=== PATIENT | female | born 1980 | race Caucasian/White ===

== ENCOUNTER 2020-01-14 10:08 | Outpatient (CLI) | payer BC, SELFPAY ==
--- NOTE | ~2020-01-14 | US_ITS ---
EXAMINATION: US retroperitoneal comp DATE: 01/14/2020 10:30 INDICATION: Chronic kidney disease TECHNIQUE: Multiple ultrasound grayscale images of the kidneys were obtained. COMPARISON: 03/23/1959 FINDINGS: The right kidney measures 9.5 x 3.1 x 5.5 cm. The left kidney measures 8.1 x 3.2 x 4.0 cm. The kidney s demonstrate normal echogenicity. There is no hydronephrosis in either kidney. No stones identified . The bladder is normal. IMPRESSION: 1. Mild bilateral renal atrophy. No hydronephrosis. Reviewed, dictated and finalized at location [facility]. [facility]
== END 2020-01-14 10:09 | disposition home or self-care (01) ==
LOC: ANHIMG 10:10
PROVIDERS: PCP Internal Medicine; Visit Provider Internal Medicine
DX: N18.9 Chronic kidney disease, unspecified (principal)
CPT/HCPCS: 76770

== ENCOUNTER 2020-01-15 16:25 | Emergency (ER) | payer SELFPAY ==
[2020-01-15 16:36] VITALS: BP 153/97; PULSE 68; RESP 18; TEMP 37.2; O2SAT 100
--- NOTE | 2020-01-15 16:57 | ED.ANIMALBIT ---
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 Patient has small puncture wounds to her left hand no obvious signs of infection suggest erythema. There is some edema to the site with tenderness no drainage noticed and no neurovascular deficiency noted. Patient able to move phalanges no signs of tenosynovitis . Patient did receive a tetanus shot. According to iron worker foreman animal did have a rabies shot. The patient denies SOB, CP, palpitation, extremity numbness, lightheadedness, dizziness, constipation, diarrhea, chills, or fever. MD complaint: animal bite Related Data Home Medications Medication Instructions Recorded Confirmed levothyroxine 50 mcg PO DAILY 01/15/20 01/15/20 trazodone 50 mg PO HS 01/15/20 01/15/20 valacyclovir [Valtrex] 2,000 mg PO Q12H PRN 01/15/20 01/15/20 Allergies Allergy/AdvReac Type Severity Reaction Status Date / Time Sulfa (Sulfonamide AdvReac Intermediate Nausea and Verified 01/15/20 16:43 Antibiotics) Vomiting Review of Systems Review of Systems: All systems reviewed & are unremarkable except as noted in HPI and below (10 point system review) [facility] Family History Family History Mother Family history of kidney disease Social History Social History Smoking status: Never smoker Alcohol intake: never Gender identity (if verbalized by the patient): Female Exam Narrative: Exam Narrative: GENERAL: This is a well-nourished, well-developed patient, in no apparent distress. HEAD: normocephalic, atraumatic. EYES: PERRL. Sclera clear/white. Vision is grossly intact. EARS: External ears normal, auditory canals clear and without drainage, TMs normal without perforation. Hearing grossly intact. NOSE: External nose normal with no obvious nasal discharge, nares without redness, no rhinorrhea. THROAT: Mucous membranes moist, posterior pharynx clear. NECK: Neck supple, non-tender without lymphadenopathy, masses or thyromegaly. CARDIOVASCULAR: Regular rate and rhythm without murmurs, gallops, or rubs. RESPIRATORY: Clear to auscultation. Breath sounds equal bilaterally. No wheezes, rales, or rhonchi. GASTROINTESTINAL: Abdomen soft, non-tender, nondistended. Bowel sounds are active. No hepato-splenomegaly, or palpable masses. No guarding. SKIN: warm, intact with no or rash, good texture and turgor. small puncture arora on the middle finger to the intermedial phalange and a small puncture wound to the back of her hand NEURO: awake, alert, and oriented to person, place and time. There were no obvious focal neurologic abnormalities. Steady gait EXTREMITIES: Normal range of motion. No edema. No calf tenderness. Negative Homans sign bilaterally. BACK: Nontender without deformity or crepitance. No flank tenderness. Skin: Wounds: wounds noted Course Course Emergency Course: Site cleaned Vital Signs Vital signs: Vital Signs Temperature 98.9 F 01/15/20 16:36 Pulse Rate 68 01/15/20 16:36 Respiratory Rate 18 01/15/20 16:36 Blood Pressure 153/97 H 01/15/20 16:36 Pulse Oximetry 100 01/15/20 16:36 Temperature 98.9 F 01/15/20 16:36 Pulse Rate 68 01/15/20 16:36 Respiratory Rate 18 01/15/20 16:36 Blood Pressure 153/97 H 01/15/20 16:36 Pulse Oximetry 100 01/15/20 16:36 Discharge Plan Discharge Clinical Impression: Bite by animal Patient Disposition: Home, Self-Care Condition: Stable Instructions: Antibiotic Form, Animal Bite (ED) Additional Instructions: Follow up with provider in 1-2 week Take medication an ordered How are animal bites treated? ? If you get treated for a bite, your doctor or nurse will first clean and disinfect y
[2020-01-15] MEDS: TETANUS,DIPHTHERIA,AC PERTUSSIS ADULT (0.5 ML) BOOSTRIX IM (17:02)
== END 2020-01-15 17:12 | disposition home or self-care (01) ==
PROVIDERS: Emergency Provider Nurse Practitioner; PCP Internal Medicine
DX: S61.432A Puncture wound without foreign body of left hand, initial encounter (principal); S61.233A Puncture wound without foreign body of left middle finger without damage to nail, initial encounter; W54.0XXA Bitten by dog, initial encounter; Z23 Encounter for immunization
CPT/HCPCS: 90471; 90715; 99213; G0463

== ENCOUNTER 2021-09-16 08:26 | Outpatient (CLI) | payer BC, SELFPAY ==
--- NOTE | 2021-10-06 00:57 | WPDSLEEPSTUD ---
Sleep Study Date of Study: 09/16/21 Ordering Provider: Ade Andrea MD Interpreting Physician: Karishma Hernandes DO Sleep Study Type: Polysomnogram Height: 1.45 m Weight: 55.338 kg Body Mass Index: 26.4 Neck Circumference (inches): 14.5 Martin: 16 Reason for Sleep Study The patient had a Split Study on 06/15/2015 that showed an AHI of 14.1 and was successfully titrated to CPAP 8 cm H2O with resolution of sleep apnea. She states that the CPAP has not been effective for the past 2 months and she stopped using it. 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 The patient frequently awakens from sleep short of breath. She frequently awakens at night with heartburn, belching or cough. She frequently snores and it is occasionally loud enough others complain. She occasionally has trouble sleeping when she has a cold. She frequently wakes up gasping for air throughout the night. She frequently has breathing problems at night observed by herself or others. She occasionally sweats excessively at night. She occasionally has heart palpitations or irregular heartbeats during the night. She occasionally falls asleep during the day but never while driving. She denies sleep paralysis and cataplexy. She rarely has trouble at school or work due to sleepiness. She frequently experiences vivid dreamlike scenes upon awakening or falling asleep. She frequently feels afraid of going to sleep. She occasionally has nightmares. She occasionally remembers her dreams. She occasionally has thoughts racing through her mind. She rarely feels sad or depressed. She occasionally has anxiety. She occasionally has muscular tension. She occasionally notices parts of her body jerk. She rarely kicks during the night. She frequently has crawling and aching feelings in her legs and occasionally has leg pain during the night. She constantly grinds her teeth during sleep and occasionally awakens with morning jaw pain. She is occasionally bothered by pain during the day and occasionally awakened by pain during the night. She frequently wakes up feeling stiff in the morning. She occasionally wakes up with sore achy muscles. She frequently wakes up with pain in the neck, spine and other joints. She goes to bed at 10:00 p.m. on weekdays and at 11:00 p.m. on weekends. She states that it takes a long time for her to fall asleep. She wakes up 4-5 times throughout the night for unknown reasons. She is unable to back asleep she will watch television. The amount of time it takes her to fall back asleep is variable. She wakes up at 40 5:00 a.m. on weekdays and at 7:00 a.m. on the weekends. She typically gets 6-8 hours of sleep per night. She will stay in bed for a few minutes after waking up in the morning. She currently lives with her 17-year-old son. She will consume caffeinated beverages within 2 hours of bedtime. She does not engage in physical exercise before bedtime. She will watch television before falling asleep. He will take naps in the afternoon or the evening but there was a refreshing. She drinks 1-2 caffeinated beverages per day. She will occasionally drink alcohol. She denies tobacco and recreational drug use. [facility] Past Medical History Medical History (Updated 10/10/21 @ 21:22 by Karishma Hernandes DO) Anxiety Essential (primary) hypertension Hypothyroidism Migraine, unspecified, not intractable, without status migrainosus Obstructive Sleep Apnea-Hypopnea Syndrome Family History Family History Mother Family history of kidney disease Social History Social History Social History: Social smoker as a teenager Smoking packs per day: 0.3
[2021-10-10 21:32] VITALS: BMI 26.4
== END 2021-09-17 06:30 | disposition home or self-care (01) ==
LOC: ANHCSM 08:26
PROVIDERS: PCP Internal Medicine; Visit Provider Internal Medicine Critical Care Medicine
DX: G47.19 Other hypersomnia (principal); G47.33 Obstructive sleep apnea (adult) (pediatric); G47.9 Sleep disorder, unspecified
CPT/HCPCS: 95810